=== PATIENT | female | born 1990 | race Caucasian/White ===

== ENCOUNTER 2021-08-20 20:49 | Emergency (ER) | payer BC ==
[~2021-08-20] VITALS: Ht 152.4 cm; Wt 59.0 kg
[2021-08-20 21:19] VITALS: BP 115/79
[2021-08-20] MEDS ORDERED: IBUPROFEN 600MG TABLET PO ONE (21:30)
[2021-08-20] MEDS ORDERED: TETANUS, DIPHTHERIA, PERTUSSIS VAC/PF 0.5ML (>10YR OLD) IM ONE (21:30)
[2021-08-20] MEDS ORDERED: IBUP-2029 MT (22:58)
[2021-08-20] MEDS ORDERED: AMOX-424 MT (22:58)
[2021-08-20] MEDS ORDERED: TRAM50TA MT (22:58)
== END 2021-08-21 00:23 | disposition home or self-care (01) ==
LOC: ER 20:49
DX: S81.851A Open bite, right lower leg, initial encounter (principal); W54.0XXA Bitten by dog, initial encounter; Y93.01 Activity, walking, marching and hiking; Y92.480 Sidewalk as the place of occurrence of the external cause
CPT/HCPCS: 73590; 90471; 90715; 99283